=== PATIENT | female | born 1945 | race Caucasian/White ===

== ENCOUNTER 2019-09-08 19:35 | Emergency (ER) | payer MEDICARE, MEDICAID, SELFPAY ==
[2019-09-08 19:37] VITALS: BP 150/82; PULSE 97; RESP 18; TEMP 36.7; O2SAT 97; BMI 22.3
--- NOTE | 2019-09-08 19:41 | XR_ITS ---
WS: [id number] XR wrist LT min 3V* [id number] REASON FOR EXAM: fall, left wrist injury FINDINGS: Impacted fracture of the radius is seen with a fracture through the styloid process of the ulna. Mild dorsal angulation is noted. There is degenerate changes of the first metacarpal carpal articulation. XR/XR wrist LT min 3V* [id number] IMPRESSION: Colles' fracture of the left wrist
--- NOTE | 2019-09-08 19:45 | ED_ITS ---
HPI - Extremity Problem General: Chief complaint: Extremity Injury, Upper Stated complaint: fall Time Seen by Provider: 09/08/19 19:42 History of Present Illness: HPI Narrative: 74[facility]year[facility] brought in after a fall today. She injured her left wrist. Evidently fracture was diagnosed by x-ray there. She was sent here for treatment. She has a history of dementia. MD Complaint: extremity pain and extremity swelling Onset (ago): hour(s) Pain Consistency: constant Location: left and upper extremity (Wrist) Quality: aching Radiation: none Relieving factors: nothing Exacerbating factors: nothing Review of Systems General: Reports: ROS unobtainable due to medical condition PFSH ED PFSH: Social History Smoking and tobacco status: never smoked Physical Exam Const: GENERAL APPEARANCE: well developed ORIENTATION/CONSCIOUSNESS: Yes oriented to person; not oriented to place and not oriented to time HENMT: COMMON NORMALS: normocephalic, external ears normal and Normal external nose present HEAD & SCALP: normocephalic and other (Tiny abrasion to the left jew no significant swelling or tenderness) FACE & SINUS: normal facial exam NOSE: Normal external nose present and No nasal discharge present EXTERNAL EAR: Yes external ears normal MOUTH: tongue normal Eye: COMMON NORMALS: Equal, round and reactive pupils present, EOMs intact bilaterally and conjunctivae normal EYELID: eyelids normal CONJUNCTIVA: Yes conjunctivae normal PUPIL: Yes Equal, round and reactive pupils present Neck/C-Spine: COMMON NORMALS: full ROM GENERAL: No tracheal deviation CERVICAL SPINE: Yes normal cervical lordosis and No Cervical spine tenderness Chest: COMMONS NORMALS: normal inspection of the chest CHEST: No tenderness Resp: COMMON NORMALS: clear to auscultation bilaterally EFFORT & INSPECTION: No tachypneic, No respiratory distress, No retractions, No uses accessory muscles and No tracheal deviation AUSCULTATION: clear to auscultation bilaterally, no rhonchi, no wheezes and lung sounds not diminished Cardio: COMMON NORMALS: regular rate and regular rhythm RATE: regular rate RHYTHM: regular rhythm PERIPHERAL PULSES: radial pulses present GI: INSPECTION: No abdominal distension AUSCULTATION: No Hyperactive bowel sounds present and No Hypoactive bowel sounds present PALPATION: No Guarding due to palpation present (GI) and No Rigid due to palpation PERCUSSION: no dullness to percussion and no tympanic to percussion Extremity: NARRATIVE EXTREMITY EXAM: Left wrist reveals significant swelling, tenderness with mild deformity and widening of the wrist. Intact sensation and capillary refill normal distally. She has good finger movement Neuro: SENSORIUM/ORIENTATION: Yes oriented to person, No oriented to place and No oriented to time Skin: COMMON NORMALS: no rashes or lesions noted GENERAL SKIN EXAM: no rashes or lesions noted Course Vital Signs: Vital signs: Vital Signs Temperature 98.0 F 09/08/19 19:37 Pulse Rate 97 09/08/19 19:37 Respiratory Rate 18 09/08/19 19:37 Blood Pressure 150/82 09/08/19 19:37 Pulse Oximetry 97 09/08/19 19:37 MDM - Extremity (Nontraumatic) MDM Narrative: Medical decision making narrative: X-ray shows comminuted distal radius, and ulnar styloid fracture of the wrist. There is mild angulation, minimal displacement. She will be splinted in a sugar tong splint and [facility]. Discharge Plan Discharge Patient Disposition: [facility] Clinical Impression: Fracture of wrist Qualifiers: Encounter type: initial encounter Fracture type: closed Laterality: left Qualified Code(s): S62.102A - Fracture of unspecified carpal bone, left wrist, initial encounter for closed fracture Condition: Stable Referrals: Harris March MD [Primary Care Provider] - Amilcar Kiser MD [Physician] - 4-7 days Discharge Diet: Usual diet Discharge Activity: Limit activity as instructed Patient Instructions: Wrist Fracture in Adults (ED) Activity Restrictions/Additional Instructions: Orthopedic follow-up this coming week. Call for an appointment. Stay in splint until seen by orthopedics. Return for worsening pain despite treatment, inability to move fingers, other concerning symptoms. Coding Level of Care Code ED [employer] for Lilli Fwmarcelino Exam Comprehensive
--- NOTE | 2019-09-08 20:11 | PC.NURSE ---
Xray in room with patient.
[2019-09-08] MEDS: oxyCODONE-APAP 5-325 mg Tablet 1 TAB PO (21:37)
--- NOTE | 2019-09-08 21:53 | PC.NURSE ---
called report to Jose at [facility]
--- NOTE | 2019-09-08 22:20 | PC.NURSE ---
Patient is confused and getting out of bed, she also keeps taking her splint and sling off Despite redirection, splint reapplied and patient is up to a chair. Water given to patient and patient is close to nurse station.
[2019-09-08 23:40] VITALS: BP 136/84; PULSE 86; RESP 16; O2SAT 98
--- NOTE | 2019-09-10 11:19 | DCPLANNER ---
equipment hire manager had message to schedule a follow up appointment for patient with ortho. equipment hire manager called the ortho clinic, spoke with Cynthia, gave clinic patients information. equipment hire manager was told that patients information would be printed and reviewed. Clinic will call counter caser and patient with appointment information.
--- NOTE | 2019-09-12 10:52 | DCPLANNER ---
Patient has a follow up appointment scheduled for , September 12, 2019 at 12:[address] Bhatia. Clinic will call patient with appointment information.
--- NOTE | 2019-09-24 15:23 | DCPLANNER ---
Patient did attend appointment scheduled for 09.12.19 with ortho.
== END 2019-09-08 23:43 ==
PROVIDERS: Emergency Provider Emergency Medicine; PCP Internal Medicine
DX: S52.612A Displaced fracture of left ulna styloid process, initial encounter for closed fracture (principal); S52.502A Unspecified fracture of the lower end of left radius, initial encounter for closed fracture; W19.XXXA Unspecified fall, initial encounter; Y92.129 Unspecified place in nursing home as the place of occurrence of the external cause
CPT/HCPCS: 12345; 29125; 29240; 73110; 99283

== ENCOUNTER → 2019-09-18 11:30 | Outpatient (BNVA) | payer MEDICARE, MEDICAID, SELFPAY | PROVIDERS: PCP Internal Medicine; Visit Provider Specialist | DX: S52.502A Unspecified fracture of the lower end of left radius, initial encounter for closed fracture (principal); S52.602A Unspecified fracture of lower end of left ulna, initial encounter for closed fracture; X58.XXXA Exposure to other specified factors, initial encounter | CPT/HCPCS: 73110 ==

== ENCOUNTER 2019-09-18 16:04 | Outpatient (CLI) | payer MEDICARE, MEDICAID, SELFPAY | END 2019-09-18 16:05 | disposition home or self-care (01) | LOC: SPT 16:05 | PROVIDERS: PCP Internal Medicine; Visit Provider Specialist | DX: Z46.89 Encounter for fitting and adjustment of other specified devices (principal); S52.592D Other fractures of lower end of left radius, subsequent encounter for closed fracture with routine healing; S52.692D Other fracture of lower end of left ulna, subsequent encounter for closed fracture with routine healing; X58.XXXD Exposure to other specified factors, subsequent encounter; S52.502A Unspecified fracture of the lower end of left radius, initial encounter for closed fracture; S52.602A Unspecified fracture of lower end of left ulna, initial encounter for closed fracture; X58.XXXA Exposure to other specified factors, initial encounter | CPT/HCPCS: 73110; 97760; L3982 ==

== ENCOUNTER 2020-09-22 19:36 | Emergency (ER) | payer MEDICARE, MEDICAID, SELFPAY ==
[2020-09-22 19:38] VITALS: BP 136/78; PULSE 104; RESP 17; TEMP 36.6; O2SAT 91; BMI 22.4
[2020-09-22 19:45] VITALS: PULSE 104; RESP 21; O2SAT 91
--- NOTE | 2020-09-22 19:50 | XRR_ITS ---
PROCEDURE INFORMATION: Exam: XR Right Elbow Exam date and time: 09/22/2020 7:50 PM Age: 75 years old Clinical indication: Injury or trauma; Fall; Blunt trauma (contusions or hematomas); Elbow; Right; Injury details: Best images possible due to PT condition TECHNIQUE: Imaging protocol: XR Right elbow. Views: 1 or 2 views. COMPARISON: No relevant prior studies available. FINDINGS: Bones/joints: Comminuted distal humeral metaphyseal fracture with displacement up to 1/2 shaft along with some impaction and articular involvement at the elbow joint. Soft tissues: Normal. XR/XR elbow RT 2V [id number] IMPRESSION: Comminuted distal humeral metaphyseal fracture with displacement up to 1/2 shaft along with some impaction and articular involvement at the elbow joint.
--- NOTE | 2020-09-22 19:50 | CTR_ITS ---
PROCEDURE INFORMATION: Exam: CT Chest Without Contrast; Diagnostic Exam date and time: 09/22/2020 7:50 PM Age: 75 years old Clinical indication: Injury or trauma; Fall; Generalized; Blunt trauma (contusions or hematomas); Injury details: Best images possible. PT AMS and contracted; Prior surgery; Additional info: Fall, hip pain TECHNIQUE: Imaging protocol: Diagnostic computed tomography of the chest without contrast. Radiation optimization: All CT scans at this facility use at least one of these dose optimization techniques: automated exposure control; mA and/or kV adjustment per patient size (includes targeted exams where dose is matched to clinical indication); or iterative reconstruction. COMPARISON: CTA Chest-Pulmonary Emb [id number] 03/30/2016 9:25 PM RADIATION DOSE METRICS: Total DLP (mGy-cm): 1136.62 FINDINGS: Lungs: Bibasilar atelectasis. Pleural spaces: Unremarkable. No pneumothorax. No pleural effusion. Heart: Unremarkable. No cardiomegaly. No pericardial effusion. 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 Aorta: Unremarkable. No aortic aneurysm. Lymph nodes: Unremarkable. No enlarged lymph nodes. Bones/joints: Chronic compression fractures in the spine. Right distal humeral fracture incompletely visualized. Soft tissues: Unremarkable. IMPRESSION: 1. Negative for traumatic injury to the chest. 2. 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 3. Chronic compression fractures in the spine. 4. Bibasilar atelectasis. 5. Right distal humeral fracture incompletely visualized. PROCEDURE INFORMATION: Exam: CT Abdomen And Pelvis Without Contrast Exam date and time: 09/22/2020 7:50 PM Age: 75 years old Clinical indication: Injury or trauma; Fall; Generalized; Blunt trauma (contusions or hematomas); Injury details: Best images possible. PT AMS and contracted; Prior surgery; Additional info: Fall, hip pain TECHNIQUE: Imaging protocol: Computed tomography of the abdomen and pelvis without contrast. Radiation optimization: All CT scans at this facility use at least one of these dose optimization techniques: automated exposure control; mA and/or kV adjustment per patient size (includes targeted exams where dose is matched to clinical indication); or iterative reconstruction. COMPARISON: CTA Chest-Pulmonary Emb [id number] 03/30/2016 9:25 PM RADIATION DOSE METRICS: Total DLP (mGy-cm): 1136.62 FINDINGS: Liver: Normal. No mass. Gallbladder and bile ducts: Cholecystectomy. Pancreas: Normal. No ductal dilation. Spleen: Normal. No splenomegaly. Adrenal glands: Normal. No mass. Kidneys and ureters: Normal. No hydronephrosis. Stomach and bowel: Constipation Appendix: No evidence of appendicitis. Intraperitoneal space: Unremarkable. No free air. No significant fluid collection. Vasculature: Unremarkable. No abdominal aortic aneurysm. Lymph nodes: Unremarkable. No enlarged lymph nodes. Urinary bladder: Unremarkable as visualized. Reproductive: Unremarkable as visualized. Bones/joints: Right acetabular superior and anterior wall mildly displaced fracture with some suspected involvement of the superior and possibly inferior right pubic rami. Bilateral surgical hardware in the hips. Several chronic compression fractures in the spine. Soft tissues: Unremarkable. CT/CT chest abd pel wo con IMPRESSION: 1. Right acetabular superior and anterior wall mildly displaced fracture with some suspected involvement of the superior and possibly inferior right pubic rami. 2. Cholecystectomy. 3. Constipation 4. Bilateral surgical hardware in the hips. 5. Several chronic compression fractures in the spine. Radiation Dose CTDIVOL = (mGy): DLP = 1136.62~1136.62 (mGy-cm)
--- NOTE | 2020-09-22 19:50 | CTR_ITS ---
PROCEDURE INFORMATION: Exam: CT Head Without Contrast Exam date and time: 09/22/2020 7:50 PM Age: 75 years old Clinical indication: Injury or trauma; Fall; Blunt trauma (contusions or hematomas); Patient HX: Best images possible. PT AMS with a fractured arm and very contracted TECHNIQUE: Imaging protocol: Computed tomography of the head without contrast. Radiation optimization: All CT scans at this facility use at least one of these dose optimization techniques: automated exposure control; mA and/or kV adjustment per patient size (includes targeted exams where dose is matched to clinical indication); or iterative reconstruction. COMPARISON: CT head wo con* [id number] 10/09/2018 8:04 PM RADIATION DOSE METRICS: Total DLP (mGy-cm): 783.96 FINDINGS: Brain: Periventricular and deep white matter hypodensities compatible with chronic microvascular ischemic changes. No acute intracranial hemorrhage. No edema, mass effect or midline shift. Cerebral ventricles: No ventriculomegaly. Paranasal sinuses: Opacification/mucosal thickening of the frontal, ethmoid and maxillary sinuses. Mastoid air cells: No mastoid effusion. Bones/joints: No acute fracture. Soft tissues: Chronic appearing partially calcified scalp density at the right vertex. CT/CT head wo con* [id number] IMPRESSION: No acute intracranial abnormality. Radiation Dose CTDIVOL = (mGy): DLP = 783.96 (mGy-cm)
--- NOTE | 2020-09-22 19:50 | XRR_ITS ---
PROCEDURE INFORMATION: Exam: XR Right Humerus Exam date and time: 09/22/2020 7:50 PM Age: 75 years old Clinical indication: Injury or trauma; Fall; Blunt trauma (contusions or hematomas); Arm, upper; Right TECHNIQUE: Imaging protocol: XR Right humerus. Views: 2 or more views. COMPARISON: CTA Chest-Pulmonary Emb [id number] 03/30/2016 9:25 PM FINDINGS: Bones/joints: Distal humeral metaphyseal comminuted fracture with up to 1/2 shaft displacement along with impaction and articular involvement at the elbow joint. Soft tissues: Normal. XR/[place] [id number] IMPRESSION: Distal humeral metaphyseal comminuted fracture with up to 1/2 shaft displacement along with impaction and articular involvement at the elbow joint.
[2020-09-22 20:56] VITALS: PULSE 101; RESP 21; O2SAT 91
[2020-09-22 22:32] VITALS: BP 137/76; PULSE 99; RESP 17; O2SAT 97
[2020-09-22 23:44] VITALS: BP 136/75; PULSE 101; RESP 19; O2SAT 92
--- NOTE | 2020-09-22 23:52 | PC.NURSE ---
Talked to Eden at [facility]
--- NOTE | 2020-09-22 23:56 | W.ED.FALL ---
HPI - Fall General: Chief Complaint: Fall Stated Complaint: FALL Source: EMS Mode of arrival: EMS Limitations: other (Dementia) History of Present Illness: HPI Narrative: Patient is a [facility] resident, resident of [facility] and apparently about 730 this morning had a fall. This evening around 7:30 PM they noticed that when they tried to get her out of bed she had some pain in her right hip and her right elbow appeared swollen, so she was therefore sent to the emergency department to be evaluated. She has dementia and is unable to give me history. MD complaint: fall Onset (ago): hour(s) (12) Fall from: standing Fall witnessed: yes, by living facility staff Place fall occurred: [facility] Loss of consciousness: None Prolonged down time: no Location of injury: pelvis (right hip) Location of injury - extremities: Right: elbow Review of Systems General: Reports: ROS unobtainable due to mental status (dementia) PFSH ED PFSH: Social History Smoking and tobacco status: never smoked Physical Exam Const: COMMON NORMALS: no acute distress, average body habitus, patient oriented x3, no limitations, healthy appearing, alert and well nourished HENMT: COMMON NORMALS: normocephalic, atraumatic and moist oral mucous membranes HEAD & SCALP: normocephalic and atraumatic Neck/C-Spine: COMMON NORMALS: no meningeal signs and no JVD Resp: COMMON NORMALS: normal respiratory effort, No retractions, No use of accessory muscles, clear to auscultation bilaterally and percussion normal AUSCULTATION: clear to auscultation bilaterally PERCUSSION: percussion normal Cardio: COMMON NORMALS: no JVD, regular rate, regular rhythm, S1 normal heart sound present, S2 normal heart sound present, No gallops present (Cardio), No clicks present (Cardio), No murmurs present (Cardio), No rub (Cardio) and Peripheral pulses 2+ throughout RATE: regular rate RHYTHM: regular rhythm HEART SOUNDS: S1 normal heart sound present and S2 normal heart sound present PERIPHERAL PULSES: Peripheral pulses 2+ throughout GI: COMMON NORMALS: Normal to inspection, nondistended, normoactive bowel sounds present, Soft to palpation, non-tender, No hepatosplenomegaly present, no masses and no bruits PALPATION: Yes Soft to palpation and Yes No hepatosplenomegaly present Extremity: COMMON NORMALS: normal to inspection, full ROM, capillary refill normal, no calf tenderness and no pedal edema RIGHT UPPER EXTREMITY: Yes elbow joint (There is swelling around her right elbow, tender to touch as she cries out ) Right elbow: Yes palpation (Tender to palpation), Yes ROM (Reduced range of movement) and Yes neurovascular exam (Unable to test the neurologic exam but vascular exam unremarkable) OTHER: Patient is in pain when her pelvis is compressed, more on the right. She has prior right hip surgery. Neuro: COMMON NORMALS: patient oriented x3 SENSORIUM/ORIENTATION: Yes alert MENINGEAL SIGNS: Yes no meningeal signs Skin: COMMON NORMALS: no rashes or lesions noted, no wounds, turgor normal, no jaundice, no petechiae and no mottling GENERAL SKIN EXAM: no rashes or lesions noted and turgor normal Course ED course: 2210: Discussed the patient with Nafisa, her DPOA and they would like her to have surgery for correction of the fractures. Consultations: Consultation #1: Discussed the patient with Dr. Guidry, orthopedic surgeon at this facility. She states that no orthopedic surgeon in this facility does acetabular fractures and the patient will need to be transferred. Time: 22:16 Consultation #2: Called [facility] and spoke to the transportation coordinator. They will get in touch with the orthopedic surgeon on-call and return a call. Time: 22:20 Consultation #3: Discussed the patient with Dr. Wray, orthopedic surgeon on-call at [facility] in [place]. He kindly accepted the patient to his service. Time: 23:50 Vital Signs: Vital signs: Vital Signs Temperature 97.8 F 09/22/20 19:38 Pulse Rate 98 09/23/20 00:24 Respiratory Rate 18 09/23/20 00:24 Blood Pressure 134/77 09/23/20 00:24 Pulse Oximetry 92 09/23/20 00:24 MDM - Fall MDM Narrative: Medical decision making narrative: 75-year-old female [facility] resident who had a fall earlier today. After about 12 hours they noticed that she may have had a deformity on her right elbow and some pain in her right hip, she was then sent to the emergency department to be evaluated. In the ED she has a comminuted distal humeral fracture as well as acetabular fracture on the right. No orthopedic surgeon in this facility does acetabular fracture so she is transferred to [facility] in [place] for further evaluation and management. Medical Records: Attestation: I reviewed the patient's medical records. Lab Data: Attestation: I reviewed the patient's lab results. Labs: Lab Results 09/22/20 Range/Units 23:42 SARS-CoV-2 Ag (Rap id) Negative (Negative) Imaging Data^: Other CT: Attestation: I personally reviewed and interpreted this imaging study as follows: Radiologist's impression: [employer] [address]YV Scan ReportSigned Patient: Parminder Mullen #: [id number]: [id number]#:[id number]/Sex: 75 / FADM Date: 09/22/20Loc: ERRoom/Bed:Attending Dr: Ordering Provider/Ordering MD: Josselin Castillo MD, [facility] Date of Service: 09/22/20 Procedure(s): CT chest abd pel wo con Accession Number(s): [id number] Report Number: [id number] PROCEDURE INFORMATION: Exam: CT Chest Without Contrast; Diagnostic Exam date and time: 09/22/2020 7:50 PM Age: 75 years old Clinical indication: Injury or trauma; Fall; Generalized; Blunt trauma (contusions or hematomas); Injury details: Best images possible. PT AMS and contracted; Prior surgery; Additional info: Fall, hip pain TECHNIQUE: Imaging protocol: Diagnostic computed tomography of the chest without contrast. Radiation optimization: All CT scans at this facility use at least one of these dose optimization techniques: automated exposure control; mA and/or kV adjustment per patient size (includes targeted exams where dose is matched to clinical indication); or iterative reconstruction. COMPARISON: CTA Chest-Pulmonary Emb [id number] 03/30/2016 9:25 PM RADIATION DOSE METRICS: Total DLP (mGy-cm): 1136.62 FINDINGS: Lungs: Bibasilar atelectasis. Pleural spaces: Unremarkable. No pneumothorax. No pleural effusion. Heart: Unremarkable. No cardiomegaly. No pericardial effusion. 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 Aorta: Unremarkable. No aortic aneurysm. Lymph nodes: Unremarkable. No enlarged lymph nodes. Bones/joints: Chronic compression fractures in the spine. Right distal humeral fracture incompletely visualized. Soft tissues: Unremarkable. IMPRESSION: 1. Negative for traumatic injury to the chest. 2. 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 3. Chronic compression fractures in the spine. 4. Bibasilar atelectasis. 5. Right distal humeral fracture incompletely visualized. PROCEDURE INFORMATION: Exam: CT Abdomen And Pelvis Without Contrast Exam date and time: 09/22/2020 7:50 PM Age: 75 years old Clinical indication: Injury or trauma; Fall; Generalized; Blunt trauma (contusions or hematomas); Injury details: Best images possible. PT AMS and contracted; Prior surgery; Additional info: Fall, hip pain TECHNIQUE: Imaging protocol: Computed tomography of the abdomen and pelvis without contrast. Radiation optimization: All CT scans at this facility use at least one of these dose optimization techniques: automated exposure control; mA and/or kV adjustment per patient size (includes targeted exams where dose is matched to clinical indication); or iterative reconstruction. COMPARISON: CTA Chest-Pulmonary Emb [id number] 03/30/2016 9:25 PM RADIATION DOSE METRICS: Total DLP (mGy-cm): 1136.62 FINDINGS: Liver: Normal. No mass. Gallbladder and bile ducts: Cholecystectomy. Pancreas: Normal. No ductal dilation. Spleen: Normal. No splenomegaly. Adrenal glands: Normal. No mass. Kidneys and ureters: Normal. No hydronephrosis. Stomach and bowel: Constipation Appendix: No evidence of appendicitis. Intraperitoneal space: Unremarkable. No free air. No significant fluid collection. Vasculature: Unremarkable. No abdominal aortic aneurysm. Lymph nodes: Unremarkable. No enlarged lymph nodes. Urinary bladder: Unremarkable as visualized. Reproductive: Unremarkable as visualized. Bones/joints: Right acetabular superior and anterior wall mildly displaced fracture with some suspected involvement of the superior and possibly inferior right pubic rami. Bilateral surgical hardware in the hips. Several chronic compression fractures in the spine. Soft tissues: Unremarkable. CT/CT chest abd pel wo con IMPRESSION: 1. Right acetabular superior and anterior wall mildly displaced fracture with some suspected involvement of the superior and possibly inferior right pubic rami. 2. Cholecystectomy. 3. Constipation 4. Bilateral surgical hardware in the hips. 5. Several chronic compression fractures in the spine. Radiation Dose CTDIVOL = (mGy): DLP = 1136.62~1136.62 (mGy-cm) Dictated By:Wilber Henderson MDSigned By:Wilber Henderson MDSigned Date/Time:09/22/202128DD/ 27 Other Xray: Attestation: I personally reviewed and interpreted this imaging study as follows: Radiologist's impression: [address] [address]WLxs ReportSigned Patient: Parminder Mullen #: [id number]: 1945cct#:[id number]/Sex: 75 / FADM Date: 09/22/20Loc: ERRoom/Bed:Attending Dr: Ordering Provider/Ordering MD: Josselin Castillo MD, [facility] [place] Date of Service: 09/22/20 Procedure(s): XR elbow RT 2V 52219 Accession Number(s): [id number] Report Number: [id number] PROCEDURE INFORMATION: Exam: XR Right Elbow Exam date and time: 09/22/2020 7:50 PM Age: 75 years old Clinical indication: Injury or trauma; Fall; Blunt trauma (contusions or hematomas); Elbow; Right; Injury details: Best images possible due to PT condition TECHNIQUE: Imaging protocol: XR Right elbow. Views: 1 or 2 views. COMPARISON: No relevant prior studies available. FINDINGS: Bones/joints: Comminuted distal humeral metaphyseal fracture with displacement up to 1/2 shaft along with some impaction and articular involvement at the elbow joint. Soft tissues: Normal. XR/XR elbow RT 2V 22244 IMPRESSION: Comminuted distal humeral metaphyseal fracture with displacement up to 1/2 shaft along with some impaction and articular involvement at the elbow joint. Dictated By:Wilber Henderson MDSigned By:Wilber Henderson MDSigned Date/Time:09/22/202114DD/ 13 CT Head: Attestation: I personally reviewed and interpreted this imaging study as follows: Radiologist's impression: [address], [place] [address]EE Scan ReportSigned Patient: Parminder Mullen #: [id number]: [id number]#:[id number]/Sex: 75 / FADM Date: 09/22/20Loc: ERRoom/Bed:Attending Dr: Ordering Provider/Ordering MD: Josselin Castillo MD, [facility] [place] Date of Service: 09/22/20 Procedure(s): CT head wo con* [id number] Accession Number(s): [id number] Report Number: [id number] PROCEDURE INFORMATION: Exam: CT Head Without Contrast Exam date and time: 09/22/2020 7:50 PM Age: 75 years old Clinical indication: Injury or trauma; Fall; Blunt trauma (contusions or hematomas); Patient HX: Best images possible. PT AMS with a fractured arm and very contracted TECHNIQUE: Imaging protocol: Computed tomography of the head without contrast. Radiation optimization: All CT scans at this facility use at least one of these dose optimization techniques: automated exposure control; mA and/or kV adjustment per patient size (includes targeted exams where dose is matched to clinical indication); or iterative reconstruction. COMPARISON: CT head wo con* [id number] 10/09/2018 8:04 PM RADIATION DOSE METRICS: Total DLP (mGy-cm): 783.96 FINDINGS: Brain: Periventricular and deep white matter hypodensities compatible with chronic microvascular ischemic changes. No acute intracranial hemorrhage. No edema, mass effect or midline shift. Cerebral ventricles: No ventriculomegaly. Paranasal sinuses: Opacification/mucosal thickening of the frontal, ethmoid and maxillary sinuses. Mastoid air cells: No mastoid effusion. Bones/joints: No acute fracture. Soft tissues: Chronic appearing partially calcified scalp density at the right vertex. CT/CT head wo con* [id number] IMPRESSION: No acute intracranial abnormality. Radiation Dose CTDIVOL = (mGy): DLP = 783.96 (mGy-cm) Dictated By:Jesus Rivera MDSigned By:Jesus Rivera MDSigned Date/Time:062117DD/ 16 Xray Ortho: Attestation: I personally reviewed and interpreted this imaging study as follows: Radiologist's impression: Marsha Fuentes[address] [facility] [place] [address]XAut ReportSigned Patient: Parminder Mullen #: [id number]: 4Acct#:[id number]/Sex: 75 / FADM Date: 09/22/20Loc: ERRoom/Bed:Attending Dr: Ordering Provider/Ordering MD: Josselin Castillo MD, [facility] Date of Service: 09/22/20 Procedure(s): [place] [address] Accession Number(s): [id number] Report Number: [id number] PROCEDURE INFORMATION: Exam: XR Right Humerus Exam date and time: 09/22/2020 7:50 PM Age: 75 years old Clinical indication: Injury or trauma; Fall; Blunt trauma (contusions or hematomas); Arm, upper; Right TECHNIQUE: Imaging protocol: XR Right humerus. Views: 2 or more views. COMPARISON: CTA Chest-Pulmonary Emb [id number] 03/30/2016 9:25 PM FINDINGS: Bones/joints: Distal humeral metaphyseal comminuted fracture with up to 1/2 shaft displacement along with impaction and articular involvement at the elbow joint. Soft tissues: Normal. XR/[place] [id number] IMPRESSION: Distal humeral metaphyseal comminuted fracture with up to 1/2 shaft displacement along with impaction and articular involvement at the elbow joint. Dictated By:Wilber Henderson MDSigned By:Wilber Henderson MDSigned Date/Time:09/22/202114DD/ 14 Discharge Plan Discharge Patient Disposition: Xfer Short-Term Hosp Clinical Impression: Acetabulum fracture, right, Fracture of distal end of humerus, Fall Condition: Stable Discharge Orders: Transfer Out of Facility (Order); Ordered 09/22/20 Ordered By: Josselin Castillo Referrals: Harris March MD [Primary Care Provider] - Coding Level of Care Code ED Technical Documentation Specialist for Lilli Gupta
[2020-09-23 00:10] LABS: SARS Covid-2 Antigen Negative (Negative)
[2020-09-23] MEDS: morphine 4 mg/mL SDV 1 mL 2 MG IVP (00:14)
[2020-09-23] MEDS: ondansetron 2 mg/ML SDV 2 mL 4 MG IVP (00:14)
[2020-09-23 00:24] VITALS: BP 134/77; PULSE 98; RESP 18; O2SAT 92
[2020-09-23] MEDS: morphine 4 mg/mL SDV 1 mL IVP (01:46)
--- NOTE | 2020-09-23 01:58 | PC.NURSE ---
Gave report to Cathy at [facility]
== END 2020-09-23 00:58 | disposition short-term general hospital (02) ==
PROVIDERS: Emergency Provider Family Medicine; PCP Internal Medicine
DX: S32.401A Unspecified fracture of right acetabulum, initial encounter for closed fracture (principal); S42.491A Other displaced fracture of lower end of right humerus, initial encounter for closed fracture; W19.XXXA Unspecified fall, initial encounter; Y92.129 Unspecified place in nursing home as the place of occurrence of the external cause; F03.90 Unspecified dementia, unspecified severity, without behavioral disturbance, psychotic disturbance, mood disturbance, and anxiety; Z20.822 Contact with and (suspected) exposure to COVID-19
CPT/HCPCS: 70450; 71250; 73060; 73070; 74176; 87426; 96374; 96375; 96376; 99285; J2270; J2405